=== PATIENT | male | born 1955 | race Caucasian/White ===

== ENCOUNTER → 2024-02-11 | Outpatient (CLI) | payer SELFPAY, OTHER ==
--- NOTE | 2024-02-11 13:20 | CT_ITS ---
EXAM: CT LEFT LOWER EXTREMITY WITHOUT INTRAVENOUS CONTRAST CLINICAL INDICATION: PAIN Primary arthritis OF LEFT ANKLE TECHNIQUE: Helically acquired images were obtained of the left lower extremity without intravenous contrast. 2-D reformats were performed by the technologist. CTDIvol = ( 16.38 ) mGy, DLP = ( 880.68 ) mGycm This CT exam was performed using one or more of the following dose reduction techniques: automated exposure control, adjustment of the mA and/or kV according to patient size, and/or use of iterative reconstruction technique. COMPARISON: No relevant prior studies available. FINDINGS: BONES/JOINTS: Corticated ossicle at the inferior process of the medial malleolus and lateral malleolus probably represents sequela of previous injury/nonunited fracture. Total knee arthroplasty identified with no hardware complications or failure. Moderate degenerative changes of the midfoot and tibiotalar articulation. Prominent plantar and posterior calcaneal enthesophytes. Periosteal reaction along the medial posterior aspect of the distal tibia is nonspecific. Moderate osteoarthrosis of the tibiotalar articulation. Hallux valgus deformity with moderate osteoarthrosis of first metatarsophalangeal joint. No acute fracture. No unusual lytic or sclerotic lesions of bone. SOFT TISSUES: Edema involving the distal extremity/ankle. No radiopaque foreign body. OTHER FINDINGS: Peroneal and medial flexor tenosynovitis. CT/Extremity Lower without Contra IMPRESSION: 1. Periosteal reaction along the medial posterior aspect of the distal tibia is nonspecific although it can be seen with underlying osteomyelitis. Consider MRI if concerned. 2. Peroneal and medial flexor tenosynovitis. 3. Total knee arthroplasty without complication. 4. Moderate degenerative change involving the midfoot and hindfoot. 5. Ancillary findings as above. Electronically Signed: Usman Villalobos MD at 16:08 EDT ,
== END | disposition home or self-care (01) ==
LOC: CT 12:55
PROVIDERS: PCP Family Medicine; Referring Provider Orthopaedic Surgery Foot and Ankle Surgery; Visit Provider Orthopaedic Surgery Foot and Ankle Surgery
DX: M19.072 Primary osteoarthritis, left ankle and foot (principal)
CPT/HCPCS: 73700